=== PATIENT | female | born 1985 | race Caucasian/White ===

== ENCOUNTER 2016-11-08 22:26 | Emergency (ER) | payer MEDICARE, MEDICAID ==
[~2016-11-08] VITALS: Ht 160 cm; Wt 113.4 kg
[2016-11-08] MEDS ORDERED: VITAMIN D50000 I1 PO (22:41)
[2016-11-08 22:45] LABS: URINE BILIRUBIN - DIPSTICK NEGATIVE (NEG); URINE BLOOD 1+ (NEG)
--- NOTE | 2016-11-08 23:32 | Emergency Room Report ---
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 N Clinical Suspician of Infection? N Mental Status: 1 - Regular (Normal Baseline) Sepsis Risk:Low Sepsis Risk Have you (or family members/close friends) recently traveled outside the [place]? N If Yes, where/when: Have you had exposure to infectious disease within the past month? TB? Other? Specify: Source patient, RN notes reviewed, family, RN/MD Exam Limitations no limitations Comment This is a 31-year-old lady presenting to the emergency room with RIGHT lower quadrant abdominal pain, worse with coughing, worse with straining, onset earlier this morning. Patient has a history of ovarian cysts, presenting similarly in the past. Patient has any recent travel, any recent exposure to sick contacts, any nausea, vomiting, diarrhea or fever. Patient denies any vaginal bleeding, any vaginal discharge, any discomfort with intercourse. Pain is described as "stabbing", 5/10, intermittent. ALLERGIES Coded Allergies: NSAIDS (Non-Steroidal Anti-Inflamma (Mild, 11/08/16) hydromorphone (From DILAUDID) (Mild, 11/08/16) Home Medications Reported Medications ERGOCALCIFEROL (VITAMIN D2) (Vitamin D2) 50,000 IUNITS PO WEEKLY #4 History Medical History General CAD? No Angina: No Asthma? Yes GERD? Yes Renal Insuffiency? Yes More? 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 Social History Smoking Hx Smoker: Never Smoker Tobacco: No Type N/A Are you/the child exposed to second-hand smoke: No Alcohol Alcohol: No Review of Systems All Other Systems Reviewed and Negative Gastrointestinal abdominal pain (RLQ abd pain) Physical Exam Vital Signs Vital Signs Date Time Temp Pulse Resp B/P Pulse O2 O2 Flow FiO2 Ox Delivery Rate 11/09 0046 62 18 112/75 99 11/085 98.3 64 18 122/72 97 General Appearance normal appearance, WD/WN, no apparent distress Neck normal inspection, non-tender, supple, full range of motion Respiratory Status Yes: trachea midline, chest symmetrical, non tender chest. No: respiratory distress. Lung Sounds bilateral: normal breath sounds, lungs clear. Cardiovascular normal exam, regular rate/rhythm, no peripheral edema, no gallop, no JVD, no murmur, no rub, normal peripheral pulses Gastrointestinal normal bowel sounds, normal exam, non tender, soft, no organomegaly Extremities non-tender, normal range of motion, normal inspection Neurologic alert, box turner II-XII nml as tested, normal exam, oriented x 3 Mental status normal mood/affect Skin intact, normal color, warm/dry Medical Decision Making LABS/Meds/Orders Pt receiving controlled substance in ED? No Comment Upon reevaluation patient appears medically stable, in minimal distress. Results discussed with patient, advised her to follow-up with her ObGyn, per discharge instructions. For pain she will alternate Motrin with Tylenol. Results/Orders Laboratory Tests 11/08/162229: Urine Color YELLOW, Urine Appearance CLEAR, Urine pH 6.5, Ur Specific Ruth 1.025, Urine Protein NEGATIVE, Urine Ketones NEGATIVE, Urine Blood 1+ H, Urine Nitrate NEGATIVE, Urine Bilirubin NEGATIVE, Urine Urobilinogen 0.2, Ur Leukocyte Esterase NEGATIVE, Urine RBC 3-5, Urine WBC OCC, Urine Bacteria 1+, Urine Mucus 1+, Urine Glucose NEGATIVE Current Medication Orders Sig/Kassidy Start time Last Medication Dose Route Stop Time Status Admin Tramadol HCl 1 CLIFFORD ONCE ONE 11/09 0045 DCr 11/09 PO 11/09 0046 0045 Tramadol HCl 0 .STK-MED ONE 11/09 0037 DCr PO Orders Procedure Date/time Status DIET-NOTHING BY MOUTH 11/[address] ABD & PELVIS W/O CONTRAST 11/[address] ABD/PELVIS REQ 11/08 2253 Complete URINALYSIS/COMPLETE 11/09 2231 Complete URINE 11/09 2231 Complete XRAY/CT/US XRAY/CT/US CT abdomen, pelvis CT interpretation by discussed w/radiologist CT Results abnormal Comment Please refer to radiologist's report Departure Departure Time of Disposition 0030 Disposition DC Home or Self Care(routine) Clinical Impression Primary Impression: RLQ abdominal pain Condition STABLE Referrals Joe ALCARAZ,Xavi Howe MD,Omar Manley Patient Instructions DI for Acute Abdomen Additional Instructions Please follow-up with one of the park services specialist listed above in the morning. Discharge Counseling Counseled pt/family regarding diagnosis, test results, medications/RX, home care, follow up needs Comment Please follow-up with one of the park services specialist listed above in the morning. ED Critical Care Critical Care No at [id number]
--- NOTE | 2016-11-08 23:32 | Emergency Room Report ---
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 N Clinical Suspician of Infection? N Mental Status: 1 - Regular (Normal Baseline) Sepsis Risk:Low Sepsis Risk Have you (or family members/close friends) recently traveled outside the [place]? N If Yes, where/when: Have you had exposure to infectious disease within the past month? TB? Other? Specify: Source patient, RN notes reviewed, family, RN/MD Exam Limitations no limitations Comment This is a 31-year-old lady presenting to the emergency room with RIGHT lower quadrant abdominal pain, worse with coughing, worse with straining, onset earlier this morning. Patient has a history of ovarian cysts, presenting similarly in the past. Patient has any recent travel, any recent exposure to sick contacts, any nausea, vomiting, diarrhea or fever. Patient denies any vaginal bleeding, any vaginal discharge, any discomfort with intercourse. Pain is described as "stabbing", 5/10, intermittent. ALLERGIES Coded Allergies: NSAIDS (Non-Steroidal Anti-Inflamma (Mild, 11/08/16) hydromorphone (From DILAUDID) (Mild, 11/08/16) Home Medications Reported Medications ERGOCALCIFEROL (VITAMIN D2) (Vitamin D2) 50,000 IUNITS PO WEEKLY #4 History Medical History General CAD? No Angina: No Asthma? Yes GERD? Yes Renal Insuffiency? Yes More? 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 Social History Smoking Hx Smoker: Never Smoker Tobacco: No Type N/A Are you/the child exposed to second-hand smoke: No Alcohol Alcohol: No Review of Systems All Other Systems Reviewed and Negative Gastrointestinal abdominal pain (RLQ abd pain) Physical Exam Vital Signs Vital Signs Date Time Temp Pulse Resp B/P Pulse O2 O2 Flow FiO2 Ox Delivery Rate 11/09 0046 62 18 112/75 99 11/085 98.3 64 18 122/72 97 General Appearance normal appearance, WD/WN, no apparent distress Neck normal inspection, non-tender, supple, full range of motion Respiratory Status Yes: trachea midline, chest symmetrical, non tender chest. No: respiratory distress. Lung Sounds bilateral: normal breath sounds, lungs clear. Cardiovascular normal exam, regular rate/rhythm, no peripheral edema, no gallop, no JVD, no murmur, no rub, normal peripheral pulses Gastrointestinal normal bowel sounds, normal exam, non tender, soft, no organomegaly Extremities non-tender, normal range of motion, normal inspection Neurologic alert, outside collector II-XII nml as tested, normal exam, oriented x 3 Mental status normal mood/affect Skin intact, normal color, warm/dry Medical Decision Making LABS/Meds/Orders Pt receiving controlled substance in ED? No Comment Upon reevaluation patient appears medically stable, in minimal distress. Results discussed with patient, advised her to follow-up with her ObGyn, per discharge instructions. For pain she will alternate Motrin with Tylenol. Results/Orders Laboratory Tests 11/08/162229: Urine Color YELLOW, Urine Appearance CLEAR, Urine pH 6.5, Ur Specific Max 1.025, Urine Protein NEGATIVE, Urine Ketones NEGATIVE, Urine Blood 1+ H, Urine Nitrate NEGATIVE, Urine Bilirubin NEGATIVE, Urine Urobilinogen 0.2, Ur Leukocyte Esterase NEGATIVE, Urine RBC 3-5, Urine WBC OCC, Urine Bacteria 1+, Urine Mucus 1+, Urine Glucose NEGATIVE Current Medication Orders Sig/Kassidy Start time Last Medication Dose Route Stop Time Status Admin Tramadol HCl 1 CLIFFORD ONCE ONE 11/09 0045 DCr 11/09 PO 11/09 0046 0045 Tramadol HCl 0 .STK-MED ONE 11/09 0037 DCr PO Orders Procedure Date/time Status DIET-NOTHING BY MOUTH 11/[address] ABD & PELVIS W/O CONTRAST 11/[address] ABD/PELVIS REQ 11/08 2253 Complete URINALYSIS/COMPLETE 11/09 2231 Complete URINE 11/09 2231 Complete XRAY/CT/US XRAY/CT/US CT abdomen, pelvis CT interpretation by discussed w/radiologist CT Results abnormal Comment Please refer to radiologist's report Departure Departure Time of Disposition 0030 Disposition DC Home or Self Care(routine) Clinical Impression Primary Impression: RLQ abdominal pain Condition STABLE Referrals Joe ALCARAZ,Xavi Howe MD,Omar Manley Patient Instructions DI for Acute Abdomen Additional Instructions Please follow-up with one of the medical insurance claims specialist listed above in the morning. Discharge Counseling Counseled pt/family regarding diagnosis, test results, medications/RX, home care, follow up needs Comment Please follow-up with one of the medical insurance claims specialist listed above in the morning. ED Critical Care Critical Care No at [id number]
[2016-11-09 00:46] VITALS: BP 112/75
--- NOTE | 2016-11-09 23:10 | RADIOLOGY REPORT PS360 ---
CT ABD PELVIS W/O CONTRAST ORDERING PHYSICIAN : Андрей Hanna MD PATIENT AGE: 31 years GENDER: Female INDICATION: RLQ ABD PAIN abdominal pain TECHNIQUE: Helical CT scanning abdomen pelvis with no oral or IV contrast. FINDINGS No previous for comparison. Lower thorax no acute findings Abdomen.: Lack of oral and IV contrast decreases sensitivity. Liver: Unremarkable Gallbladder & bile ducts. Unremarkable no calcified stones no ductal dilatation. Pancreas: Unremarkable. No ductal dilatation Spleen: unremarkable. Normal size Adrenals: unremarkable no lesions. Kidneys and ureters unremarkable. No calculi nor obstruction GI tract. Stomach and bowel appear satisfactory no obstruction no mucosal thickening. Appendix appears normal Large bowel. Generous stool the right colon with moderate stool and gas at left colon and rectosigmoid. Undigested tablet or material within the tip of the cecum No retroperitoneal nor mesenteric nor pelvic adenopathy. Pelvis: Urinary bladder is unremarkable. No stones. No focal wall thickening No free fluid. The uterus on generous girth of fundus but within normal limits. No adnexal masses. Osseous: no lesions. IMPRESSION: No acute findings at the pelvis. No significant findings. Regarding right lower quadrant pain appendix is normal; & terminal ileum satisfactory. Generous stool at this cecum and right colon..
== END 2016-11-09 00:46 | disposition home or self-care (01) ==
LOC: ER 22:26
PROVIDERS: Emergency Medicine
DX: R10.31 Right lower quadrant pain (principal); K21.9 Gastro-esophageal reflux disease without esophagitis